=== PATIENT | male | born 1975 ===

== ENCOUNTER 2025-02-06 20:50 | Outpatient (REF) | payer BC, SELFPAY ==
[2025-02-06 21:32] LABS: Calculated LDL 170 mg/dL (<100); Cholesterol 242 mg/dL (<200); HDL Cholesterol 39 mg/dL (>or=40); Triglyceride 169 mg/dL (<150)
== END 2025-02-06 20:51 | disposition home or self-care (01) ==
LOC: NCHCN 20:50
PROVIDERS: Visit Provider Family Medicine
DX: Z13.220 Encounter for screening for lipoid disorders (principal)
CPT/HCPCS: 80061